=== PATIENT | female | born 1960 | race Two or more races ===

== ENCOUNTER 2023-08-04 20:43 | Inpatient (IN) | payer OTHER ==
[2023-08-04] MEDS ORDERED: METOCLOPRAMIDE HCL INJECTION 10 MG/2 ML VIAL ONE (21:32)
[2023-08-04] MEDS ORDERED: KETOROLAC TROMETHAMINE 60 MG/2 ML VIAL ONE (21:32)
[2023-08-04] MEDS: METOCLOPRAMIDE HCL INJECTION 10 MG/2 ML VIAL IM ONE (21:37)
[2023-08-04] MEDS: KETOROLAC TROMETHAMINE 60 MG/2 ML VIAL IM ONE (21:37)
[2023-08-04 23:14] LABS: HEMATOCRIT 42.3 % (32.4-45.2); HEMOGLOBIN 13.8 G/dL (10.7-15.3); MCH 27.1 pg (25.7-33.7); MCHC 32.7 g/dl (32.0-36.0); MEAN CELL VOLUME 82.7 fl (80-96); MEAN PLT VOLUME 8.9 fl (7.5-11.1); PLATELET COUNT 204.3 10^3/uL (134-434); RBC 5.11 10^6/uL (3.60-5.2); RDW 14.5 % (11.6-15.6); WHITE BLOOD COUNT 11.4 10^3/uL (4.0-10.8)
[2023-08-04 23:20] LABS: INR 1.02 (0.83-1.09); PROTHROMBIN TIME (PATIENT) 11.6 SEC (9.7-13.0)
[2023-08-04 23:31] LABS: ALBUMIN 4.2 g/dl (3.4-5.0); BILIRUBIN,TOTAL 0.8 mg/dl (0.2-1); CALCIUM 9.5 mg/dl (8.5-10.1); CREATININE 0.8 mg/dl (0.6-1.3); POTASSIUM 4.3 mmol/L (3.5-5.1); TOT PROT 6.6 g/dl (6.4-8.2)
[2023-08-05 02:22] VITALS: BMI 26.9
[2023-08-05 07:03] LABS: BASO % 0.6 % (0-2.0); EOS % 0.1 % (0-4.5); HEMATOCRIT 42.4 % (32.4-45.2); LYMPH % 20.7 % (8-40); MCH 27.2 pg (25.7-33.7); MCHC 33.1 g/dl (32.0-36.0); MEAN CELL VOLUME 82.2 fl (80-96); MEAN PLT VOLUME 8.7 fl (7.5-11.1); MONO % 5.2 % (3.8-10.2); NEUT % 73.4 % (42.8-82.8); PLATELET COUNT 218 10^3/uL (134-434); RBC 5.16 M/mm3 (3.60-5.2); RDW 13.4 % (11.6-15.6); WHITE BLOOD COUNT 10.1 K/mm3 (4.0-10.0)
[2023-08-05 07:31] LABS: ALBUMIN 3.9 g/dl (3.4-5.0); BLOOD UREA NITROGEN 20.2 mg/dL (7-18); CALCIUM 9.3 mg/dL (8.5-10.1)
[2023-08-05 07:34] LABS: CREATININE 0.7 mg/dL (0.55-1.3)
[2023-08-05] MEDS: ACETAMINOPHEN 1000 MG/100 ML BAG IVPB ONE (09:03)
[2023-08-05] MEDS: MUPIROCIN 2% TOPICAL OINTMENT FOR DECOLONIZATION NS SCH (09:41)
[2023-08-05] MEDS ORDERED: ONDANSETRON 4 MG/2 ML VIAL IVPUSH PRN (10:44)
[2023-08-05] MEDS ORDERED: ATROPINE SULFATE 1 MG/10 ML DISP.SYRIN ONE (10:53)
[2023-08-05] MEDS ORDERED: traMADol HCL 50 MG TABLET PO PRN (11:00)
[2023-08-05] MEDS ORDERED: RAPID SEQUENCE INTUBATION KIT NR ONE (11:15)
[2023-08-05] MEDS: METOCLOPRAMIDE HCL INJECTION 10 MG/2 ML VIAL IVPB ONE (11:30)
[2023-08-05] MEDS: ENALAPRILAT DIHYDRATE 1.25 MG/1 ML VIAL IVPB ONE ×2 (11:33→13:40)
[2023-08-05] MEDS ORDERED: MIDAZOLAM HCL 2 MG/2 ML SINGLE DOSE VIAL ONE (11:36)
[2023-08-05] MEDS ORDERED: ENALAPRILAT DIHYDRATE 1.25 MG/1 ML VIAL ONE (11:48)
[2023-08-05] MEDS ORDERED: niCARdipine HCL 25 MG/10 ML AMPUL IVPB ONE (11:52)
[2023-08-05] MEDS ORDERED: PROPOFOL 1,000,000 MCG/100 ML VIAL ONE (11:59)
[2023-08-05] MEDS: amLODIPine BESYLATE 5 MG TABLET (FP) PO SCH (12:12)
[2023-08-05] MEDS: PROPOFOL 1,000,000 MCG/100 ML VIAL IVPB SCH (12:18)
[2023-08-05] MEDS: MANNITOL 25% 12.5 GM/50 ML VIAL IVPB ONE (12:30)
[2023-08-05] MEDS: levETIRAcetam 500 MG/5 ML INJECTION VIAL IVPB ONE ×2 (12:54→13:56)
[2023-08-05 13:19] LABS: ARTERIAL BLD GAS O2 SATURATION 99.5 % (95-98); ARTERIAL BLOOD GAS BASE EXCESS -4.4 mmol/L (-2-2); ARTERIAL BLOOD GAS pH 7.381 (7.350-7.450)
[2023-08-05 13:39] VITALS: BP 146/77; PULSE 68; RESP 17
[2023-08-05] MEDS: NICARDIPINE 25 MG in DEXTROSE 5%-WATER - 240 ML IVPB SCH (13:40)
[2023-08-05 14:17] VITALS: TEMP 98
[2023-08-05] MEDS ORDERED: CHLORHEXIDINE GLUCONATE 4% CLEANSER FOR DECOLONIZATION TP SCH (22:00)
== END 2023-08-05 13:38 | disposition short-term general hospital (02) | DRG 66 ==
LOC: FER 20:43 → J2W 08-05 01:56 → JICU 08-05 11:00
PROVIDERS: ADMIT Internal Medicine; ATTEND Internal Medicine Pulmonary Disease
PROC: 5A1935Z Respiratory Ventilation, Less than 24 Consecutive Hours (ICD-10-PCS; principal; 2023-08-05)
PROC: 0BH17EZ Insertion of Endotracheal Airway into Trachea, Via Natural or Artificial Opening (ICD-10-PCS; 2023-08-05)
PROC: 4A133B1 Monitoring of Arterial Pressure, Peripheral, Percutaneous Approach (ICD-10-PCS; 2023-08-05)
PROC: 4A133J1 Monitoring of Arterial Pulse, Peripheral, Percutaneous Approach (ICD-10-PCS; 2023-08-05)
DX: I62.01 Nontraumatic acute subdural hemorrhage (principal); I10 Essential (primary) hypertension; E78.5 Hyperlipidemia, unspecified; R00.1 Bradycardia, unspecified
CPT/HCPCS: 31500; 36415; 36600; 70450-TC; 71045-TC-FY; 80053; 82803; 85025; 85027; 85610; 86850; 86900; 86901; 87635; 93005; 99285-25; J0131